=== PATIENT | male | born 1995 | race African-American/Black ===

== ENCOUNTER 2019-12-22 12:09 | Emergency (ER) | payer SELFPAY ==
--- NOTE | ~2019-12-22 | XR_ITS ---
EXAMINATION: XR chest 2V EXAM DATE: 12/22/2019 13:02 INDICATION: Cough. TECHNIQUE: Frontal and lateral projections of the chest obtained and reviewed. There is no prior rosette dy for comparison. FINDINGS: The lungs are clear. There are no pleural effusions. The cardiomediastinal silhouette is within normal limits. There is no pneumothorax suspected. The bones and soft tissues are unremarkab le. IMPRESSION: Normal chest x-ray exam. Reviewed, dictated and finalized at location B. IMPRESSION: Normal chest x-ray exam.
[2019-12-22 12:12] VITALS: BP 126/76; PULSE 92; RESP 18; TEMP 36.2; O2SAT 99
--- NOTE | 2019-12-22 12:34 | ED_ITS ---
I attest that this documentation has been prepared under the direction and in the presence of Loli Monroe MD. Erasmo Mcmanus, Lexie 12/22/19;12:34 HPI - URI/Sore Throat General Chief Complaint: Upper Respiratory Infection Stated Complaint: cough Time Seen by Provider: 12/22/19 12:30 Source: patient Mode of arrival: ambulatory Limitations: no limitations History of Present Illness HPI Narrative: The pt is a 24 y/o male who presents to the ED c/o productive cough onset 1-2 weeks ago. Pt states that his significant other has been sick, as well as their child, but his significant other has been sick for 2-3 weeks. He notes that their child does not go to daycare, and has only been sick for a few days. Pt states that he has taken Mucinex and Advil. He notes his condition has improved Pt reports resolved myalgia, resolved GUERRREO, resolved fever, and congestion. 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 MD elicited complaint: cough Onset (ago): week(s) (1-2) Consistency: improved Associated symptoms: fever (Resolved), myalgias (Resolved) and headache (Resolved) Treatments prior to arrival: acetaminophen and cold medicine (Mucinex) Related Data Home Medications Medication Instructions Recorded Confirmed No Home Medications 12/22/19 12/22/19 Allergies Allergy/AdvReac Type Severity Reaction Status Date / Time No Known Allergies Allergy Verified 12/22/19 12:15 [facility] Past Medical History Medical History (Updated 12/22/19 @ 12:46 by Erasmo Mcmanus) No significant past medical history Surgical History Surgical History (Updated 12/22/19 @ 12:46 by Erasmo Mcmanus) Surgical history unknown Social History Social History (Updated 12/22/19 @ 12:46 by Erasmo Mcmanus) Smoking status: Unknown if ever smoked Gender identity (if verbalized by the patient): Male Course Vital Signs Vital signs: Vital Signs Temperature 36.2 C L 12/22/19 12:12 Pulse Rate 92 12/22/19 12:12 Respiratory Rate 18 12/22/19 12:12 Blood Pressure 126/76 12/22/19 12:12 Pulse Oximetry 99 12/22/19 12:12 Temperature 36.2 C L 12/22/19 12:12 Pulse Rate 92 12/22/19 12:12 Respiratory Rate 18 12/22/19 12:12 Blood Pressure 126/76 12/22/19 12:12 Pulse Oximetry 99 12/22/19 12:12 Discharge Plan Discharge Prescriptions: No Action No Home Medications RF: 0 I personally performed the services described in this documentation. All medical record entries made by the scribe were at my direction and in my presence. I have reviewed the chart and discharge instructions and agree that the record reflects my personal performance and is accurate and complete. Loli Monroe MD 12/22/19;0241
--- NOTE | 2019-12-22 12:48 | ED.URI ---
HPI - URI/Sore Throat General Chief Complaint: Upper Respiratory Infection Stated Complaint: cough Time Seen by Provider: 12/22/19 12:30 Source: patient Mode of arrival: ambulatory Limitations: no limitations History of Present Illness HPI Narrative: The pt is a 24 y/o male who presents to the ED c/o a productive cough onset 1-2 weeks ago. Pt states that his significant other has been ill for the past 2-3 weeks. Pt notes his daughter has also been ill for the past few days. He states that he has taken Mucinex and Advil. He reports his condition has improved. Pt reports resolved fever, resolved cough, resolved myalgia, and congestion. 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 MD elicited complaint: cough Onset (ago): week(s) (1-2 ) Consistency: improved Context: sick contacts (Significant other) Associated symptoms: fever (Resolved), myalgias (Resolved), headache (Resolved) and nasal congestion Treatments prior to arrival: ibuprofen (Advil) and cold medicine (Mucinex) Related Data Allergies Allergy/AdvReac Type Severity Reaction Status Date / Time No Known Allergies Allergy Verified 12/22/19 12:15 Review of Systems Review of Systems: All systems reviewed & are unremarkable except as noted in HPI and below Constitutional: Constitutional: Reports fever(s) (Resolved) ENT: Reports nasal congestion Respiratory: Respiratory: Reports cough (Productive ) Musculoskeletal: Musculoskeletal: Reports myalgias (Resolved) Neurologic: Reports headache(s) (Resolved) [facility], [facility] Past Medical History Medical History (Updated 12/22/19 @ 12:52 by Loli Monroe MD) No significant past medical history Surgical History Surgical History (Updated 12/22/19 @ 12:46 by Erasmo Mcmanus) Surgical history unknown Social History Social History (Updated 12/22/19 @ 12:46 by Erasmo Mcmanus) Smoking status: Unknown if ever smoked Gender identity (if verbalized by the patient): Male Course Vital Signs Vital signs: Vital Signs Temperature 36.2 C L 12/22/19 12:12 Pulse Rate 92 12/22/19 12:12 Respiratory Rate 18 12/22/19 12:12 Blood Pressure 126/76 12/22/19 12:12 Pulse Oximetry 99 12/22/19 12:12 Temperature 36.2 C L 12/22/19 12:12 Pulse Rate 92 12/22/19 12:12 Respiratory Rate 18 12/22/19 12:12 Blood Pressure 126/76 12/22/19 12:12 Pulse Oximetry 99 12/22/19 12:12 MDM - URI/Sore Throat Imaging Data Radiologist's impression: ITS Impressions Chest X-Ray 12/22/19 13:06 IMPRESSION: Normal chest x-ray exam. Discharge Plan Discharge Clinical Impression: Upper respiratory infection Patient Disposition: Home, Self-Care Condition: Stable Instructions: Cold Symptoms (ED) Additional Instructions: Return if symptoms are worsening , call your family physician for appointment, take Tylenol as as needed for aches and pain, continue home medications. Prescriptions: New ipratropium bromide 42 mcg (0.06 %) spray,non-aerosol 2 spray NASAL QID Qty: 15 RF: 0 Follow-up/Referrals: PHYSICIAN,[employer] SUPERVISOR [Primary Care Provider] - Abilio Lopez MD [Physician] - 12/26/19
--- NOTE | 2019-12-22 12:49 | ED.URI ---
HPI - URI/Sore Throat General Chief Complaint: Upper Respiratory Infection Stated Complaint: cough Time Seen by Provider: 12/22/19 12:30 Source: patient Mode of arrival: ambulatory Limitations: no limitations History of Present Illness HPI Narrative: Patient is 24 years old -[place] male presents with a respiratory symptoms in the form of nasal congestion, postnasal discharge and productive cough of clear sputum for the last 2 weeks. Patient's and daughter had the same symptoms 1 week prior to his symptoms. Last time patient had Advil 3 days ago. Patient denied exposure to sick persons or coming from overseas. Associated symptoms: fever (Resolved), myalgias (Resolved) and headache (Resolved) Treatments prior to arrival: acetaminophen and cold medicine (Mucinex) Related Data Allergies Allergy/AdvReac Type Severity Reaction Status Date / Time No Known Allergies Allergy Verified 12/22/19 12:15 Review of Systems Review of Systems: Narrative: CONSTITUTIONAL: Denies fever, chills, or sweats. EYES: Denies visual changes, redness, or discharge. ENT: Complaining of rhinorrhea, nasal congestion, postnasal discharge CARDIOVASCULAR: Denies chest pain, palpitations, or edema. RESPIRATORY: Denies cough or dyspnea. GASTROINTESTINAL: Denies abdominal pain, nausea, vomiting, or diarrhea. GENITOURINARY: Denies dysuria or hematuria. SKIN: Denies rash or itching. MUSCULOSKELETAL: Denies back pain, joint pain, or myalgia. NEUROLOGIC: Denies headache, numbness, or weakness. PSYCHIATRIC: Denies anxiety or depression. PMFSH Past Medical History Medical History (Updated 12/22/19 @ 12:52 by Loli Monroe MD) No significant past medical history Surgical History Surgical History (Updated 12/22/19 @ 12:46 by Erasmo Mcmanus) Surgical history unknown Social History Social History (Updated 12/22/19 @ 12:46 by Erasmo Mcmanus) Smoking status: Unknown if ever smoked Gender identity (if verbalized by the patient): Male Exam Narrative: Exam Narrative: General appearance: Well-developed, well-nourished Skin: Normal color Head: Normocephalic, nontraumatic Eyes: Clear conjunctiva ENT: Oropharynx normal, ears normal, nose normal Neck: Supple, nontender Chest and respiratory: Airway patent, no respiratory distress, no accessory muscle use Heart: Regular rate/rhythm Abdomen: Soft, nontender, no organomegaly, quiet bowel sounds Vascular: Normal peripheral pulses, normal capillary refill. Musculoskeletal: Normal range of motion, nontender back Neurologic: Alert and oriented ?3, PROGRAM ATTENDANT is normal as tested, no gross motor deficit Course Course Emergency Course: Stable Vital Signs Vital signs: Vital Signs Temperature 36.2 C L 12/22/19 12:12 Pulse Rate 92 12/22/19 12:12 Respiratory Rate 18 12/22/19 12:12 Blood Pressure 126/76 12/22/19 12:12 Pulse Oximetry 99 12/22/19 12:12 Temperature 36.2 C L 12/22/19 12:12 Pulse Rate 92 12/22/19 12:12 Respiratory Rate 18 12/22/19 12:12 Blood Pressure 126/76 12/22/19 12:12 Pulse Oximetry 99 12/22/19 12:12 MDM - URI/Sore Throat MDM Narrative Medical decision making narrative: Patient been having upper respiratory symptoms for the last 1 to 2 weeks, his had similar symptoms for the last 2 to 3 weeks and also his daughter. Patient denied exposure to anybody coming from overseas also denied any overseas visit lately. Last time patient received Advil 3 -4 days ago Differential Diagnosis Differential diagnosis: Likely upper respiratory infection, viral infection, bronchitis, influenza and pharyngitis Critical Care Time Critical Care Time Critical Care Time: No Disch
== END 2019-12-22 14:21 | disposition home or self-care (01) ==
PROVIDERS: Emergency Provider Emergency Medicine
DX: J06.9 Acute upper respiratory infection, unspecified (principal)
CPT/HCPCS: 71046; 87804; 99283

== ENCOUNTER 2021-11-22 11:09 | Emergency (ER) | payer OTHER, SELFPAY ==
[2021-11-22 11:20] VITALS: BP 133/86; PULSE 78; RESP 18; TEMP 36.4; O2SAT 98
[2021-11-22 11:56] LABS: Basophils Percent Auto 0.3 % (0.2-1.2); Eosinophils Absolute Auto 0.4 K/mm3 (0-0.3); Eosinophils Percent Auto 6.8 % (0-4.4); Hematocrit 44.1 % (42.0-52.0); Hemoglobin 14.6 g/dL (14.0-18.0); Immature Granulocyte Absolute 0.03 K/mm3 (0.00-0.031); Immature Granulocyte Percent A 0.5 % (0-0.5); Lymphocytes Absolute Auto 2.47 K/mm3 (0.9-3.2); Lymphocytes Percent Auto 38.4 % (18.3-44.2); Mean Corpuscular HGB Conc 33.1 g/dl (32-36); Mean Corpuscular Hemoglobin 29.9 pg (26-34); Mean Corpuscular Volume 90.2 fl (80-100); Mean Platelet Volume 11.7 fl (7.4-10.4); Monocytes Absolute Auto 0.4 K/mm3 (0.1-0.6); Monocytes Percent Auto 6.7 % (2.6-8.5); Neutrophils Percent Auto 47.3 % (45.5-73.1); Platelet Count Result 198 k/mm3 (150-375); Red Blood Count 4.89 M/mm3 (4.6-6.20); Red Cell Distribution Width 11.6 % (11.5-14.5); White Blood Count 6.4 K/mm3 (4.5-10.0)
[2021-11-22 12:02] LABS: Add Urine Microscopic? NO; Appearance Urine Clear (Clear); Bilirubin Urine Negative (Negative); Blood Urine Negative (Negative); Color Urine Yellow (Yellow); Glucose Urine UA Negative (Negative); Ketones Urine Negative (Negative); Leukocyte Esterase Ur Negative LEU/UL (Negative); Nitrate Urine Negative (Negative); Protein Urine Negative (Negative); Specific Grav Ur 1.018 (1.001-1.035); Urobilinogen Urine Negative mg/dL (<2.0)
[2021-11-22 12:06] LABS: Alanine Aminotransferase 37 U/L (4-50); Albumin Level 4.3 g/dL (3.5-5.1); Alkaline Phosphatase 111 U/L (38-126); Anion Gap 9 mmol/L (8-16); Aspartate Amino Transferase 31 U/L (17-59); Bilirubin,Total 0.7 mg/dL (0.2-1.3); Blood Urea Nitrogen 10 mg/dL (9-20); Calcium 9.4 mg/dL (8.4-10.2); Carbon Dioxide 30 mmol/L (22-30); Chloride 98 mmol/L (98-107); Estimated CRCL calculation 146 ml/min; Estimated Glomerular Filt Rate > 60; Glucose 98 mg/dL (65-110); Lipase 38 U/L (23-300); Sodium 137 mmol/L (137-145)
[2021-11-22 12:09] LABS: Partial Thromboplastin Time 34.6 SECONDS (22.3-36.8)
[2021-11-22 12:15] LABS: INR 0.9
--- NOTE | 2021-11-22 12:24 | ED.GENADULT ---
HPI - General Adult General Chief complaint: Nausea/Vomiting/Diarrhea Stated complaint: coughing blood Time Seen by Provider: 11/22/21 12:10 Source: patient Mode of arrival: ambulatory Limitations: no limitations History of Present Illness HPI narrative: Patient is a 26-year-old male complaining of cough, productive, blood-tinged sputum, nausea, diarrhea, lower abdominal pain, low back pain, decreased appetite ever since he contracted Covid 1 month ago. Patient denies any chest pain, shortness of breath, vomiting, fever or chills. Patient states that he is actually feeling better but his cough persists. Patient currently denies any lower abdominal pain and his low back pain is only exacerbated when he coughs. Related Data Allergies Allergy/AdvReac Type Severity Reaction Status Date / Time No Known Allergies Allergy Verified 12/22/19 12:15 Review of Systems Review of Systems: All systems reviewed & are unremarkable except as noted in HPI and below Constitutional: Constitutional: Denies body ache(s), Denies chills, Denies excessive sweating, Denies fever(s), Denies headache(s), Denies lethargy, Denies weakness and Denies weight loss Eyes: Eyes: Denies blurry vision, Denies change in vision and Denies loss of vision ENT: Denies dizziness, Denies ear discharge, Denies headache(s), Denies lip swelling, Denies epistaxis, Denies nasal congestion, Denies neck pain, Denies throat swelling and Denies tongue swelling Cardiovascular: Cardiovascular: Denies chest pain, Denies chest pain at rest, Denies chest pain with activity, Denies diaphoresis, Denies rapid heart rate, Denies edema, Denies irregular heart rhythm, Denies lightheadedness, Denies palpitations, Denies dyspnea and Denies dyspnea on exertion Respiratory: Respiratory: Denies chest congestion, Denies dyspnea and Denies dyspnea on exertion Gastrointestinal: Gastrointestinal: Denies melena, Denies hematochezia, Denies vomiting and Denies hematemesis Musculoskeletal: Musculoskeletal: Denies abnormal gait, Denies deformity, Denies joint swelling, Denies limited range of motion, Denies neck pain and Denies numbness Neurologic: Denies Abnormal speech present, Denies abnormal gait, Denies confusion, Denies dizziness, Denies headache(s), Denies focal weakness, Denies loss of vision, Denies numbness, Denies Other visual disturbances, Denies Sensory deficit (Neuro) and Denies weakness Psychiatric: Psychiatric: Denies confusion, Denies depression, Denies auditory hallucinations, Denies homicidal ideation and Denies suicidal ideation Endocrine: Endocrine: Denies cold intolerance, Denies excessive sweating, Denies fatigue, Denies heat intolerance and Denies palpitations Hematologic/Lymphatic: Hematologic/Lymphatic: Denies easy bleeding and Denies easy bruising Allergic/Immunologic: Allergic/Immunologic: Denies lip swelling, Denies throat swelling and Denies tongue swelling PMFSH Past Medical History Medical History No significant past medical history Surgical History Surgical History (Reviewed 11/22/21 @ 12: by Jayjay Hobson MD) Surgical history unknown Social History Social History (Reviewed 11/22/21 @ 12: by Jayjay Hobson MD) Smoking status: Unknown if ever smoked Gender identity (if verbalized by the patient): Male Comments Past medical history: None Family history: Unknown Social history: Non-smoker no EtOH or drug use Exam Const: General: cooperative, healthy appearing, comfortable, no acute distress, well developed, alert and awake; No confusion Orientation/consciousness: oriented to person, oriented to place, oriented to time, patient oriented x3 and No confusion Limitations: no limitations HENMT: Head: normal to inspection, normocephalic and atraumatic Ears: hearing grossly normal bilaterally, TM normal on the right and TM normal on the left General nose exam: Normal external nose present, Norm
[2021-11-22 13:24] VITALS: BP 128/62; PULSE 74; RESP 16; TEMP 36.6; O2SAT 100
== END 2021-11-22 13:25 | disposition home or self-care (01) ==
PROVIDERS: Physician Assistant; Emergency Provider Emergency Medicine
DX: J40 Bronchitis, not specified as acute or chronic (principal); B34.9 Viral infection, unspecified; Z86.16 Personal history of COVID-19
CPT/HCPCS: 36415; 80053; 81003; 83690; 85025; 85610; 85730; 99283